=== PATIENT | female | born 1990 | race Hispanic/Latino ===

== ENCOUNTER 2023-11-06 21:30 | Observation (INO) | payer MEDICAID ==
[~2023-11-06] VITALS: Ht 160 cm; Wt 82.6 kg
[2023-11-06 21:38] VITALS: BP 106/57; PULSE 77; RESP 18
[2023-11-06 22:26] LABS: APPEARANCE,URINE CLEAR (CLEAR); BILIRUBIN,URINE NEGATIVE (NEGATIVE); COLOR,URINE YELLOW (YELLOW); GLUCOSE, URINE (UA) NEGATIVE (NEGATIVE); KETONES,URINE NEGATIVE (NEGATIVE); LEUKOCYTE ESTERASE ,URINE LARGE Leu/uL (NEGATIVE); NITRATE,URINE NEGATIVE (NEGATIVE); OCCULT BLOOD,URINE SMALL (NEGATIVE); PROTEIN,URINE NEGATIVE (NEGATIVE)
[2023-11-06 22:34] LABS: AMPHET/METH SCREEN,URINE NEGATIVE (NEGATIVE); BARBITURATE SCREEN, URINE NEGATIVE (NEGATIVE); BENZODIAZEPINES SCREEN,URINE NEGATIVE (NEGATIVE); CANNABINOID SCREEN,URINE NEGATIVE (NEGATIVE); COCAINE SCREEN,URINE NEGATIVE (NEGATIVE); OPIATE SCREEN,URINE NEGATIVE (NEGATIVE); PHENCYCLIDINE SCREEN,URINE NEGATIVE (NEGATIVE)
[2023-11-06 22:36] LABS: ADD UA MICROSCOPIC YES
[2023-11-06 22:52] LABS: BACTERIA,URINE Few /HPF (None Seen)
[2023-11-06 22:53] LABS: SQUAMOUS EPITHELIAL CELL,UR Rare /HPF (0-2)
== END 2023-11-06 22:44 | disposition home or self-care (01) ==
LOC: EDH 21:30 → LDH 21:43
PROVIDERS: ADMIT Obstetrics & Gynecology; ATTEND Obstetrics & Gynecology
DX: O46.93 Antepartum hemorrhage, unspecified, third trimester (principal); O26.893 Other specified pregnancy related conditions, third trimester; R10.9 Unspecified abdominal pain; Z3A.39 39 weeks gestation of pregnancy; Z79.899 Other long term (current) drug therapy
CPT/HCPCS: 80305; 87077; 87088; 87186; 81001; G0379; G0378